=== PATIENT | male | born 1970 | race Caucasian/White ===

== ENCOUNTER 2016-11-04 13:37 | Emergency (ER) | payer OTHER, MEDICARE ==
[~2016-11-04] VITALS: Ht 185.4 cm; Wt 82.0 kg
[~2016-11-04 13:37] MED LIST: HYDR-3533 PO; TAMS0.4C67 PO; ZOFR4TAB3 SL
[2016-11-04 13:43] VITALS: BP 132/74; PULSE 90; RESP 20; TEMP 97.3; O2SAT 98
[2016-11-04] MEDS ORDERED: MORP1TAB24 PO (13:55)
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
[2016-11-04 14:05] LABS: AUTOMATED NEUTROPHIL # 5.1 TH/MM3 (1.8-7.7); BASOPHIL % 0.7 % (0.0-2.0); EOSINOPHIL # 0.1 TH/MM3 (0-0.4); EOSINOPHIL % 1.3 % (0.0-4.0); HEMATOCRIT 42.1 % (39.0-51.0); HEMO FLAGS DIFF FINAL; LYMPH % 22.8 % (9.0-44.0); LYMPHOCYTE # 1.7 TH/MM3 (1.0-4.8); MEAN CELL VOLUME 91.5 FL (80.0-100.0); MEAN CORPUSCULAR HEMOGLOBIN 31.7 PG (27.0-34.0); MEAN CORPUSCULAR HGB CONC 34.7 % (32.0-36.0); MONO % 6.4 % (0.0-8.0); NEUT % 68.8 % (16.0-70.0); PLATELET COUNT 292 TH/MM3 (150-450); RED CELL DISTRIBUTION WIDTH 13.4 % (11.6-17.2); WHITE BLOOD COUNT 7.5 TH/MM3 (4.0-11.0)
[2016-11-04 14:23] LABS: ANION GAP 9 MEQ/L (5-15); AST (GOT) 51 U/L (15-37); BICARBONATE 24.6 MEQ/L (21.0-32.0); BLOOD UREA NITROGEN 12 MG/DL (7-18); CHLORIDE 109 MEQ/L (98-107); GLOMERULAR FILTRATION RATE 106 ML/MIN (>89); POTASSIUM 3.8 MEQ/L (3.5-5.1); SODIUM (NA) 143 MEQ/L (136-145)
[2016-11-04 14:26] LABS: ALKALINE PHOSPHATASE 128 U/L (45-117); ALT (GPT) 78 U/L (12-78); TOTAL BILIRUBIN ADULT 0.3 MG/DL (0.2-1.0)
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
[2016-11-04 16:37] LABS: AMPHETAMINE, URINE NEG (NEG); BARBITURATES, URINE NEG (NEG); COCAINE, URINE NEG (NEG)
[2016-11-04 16:43] VITALS: BP 128/68; PULSE 89; RESP 18; O2SAT 99
[2016-11-04 18:00] VITALS: BP 130/78; PULSE 92; RESP 18; TEMP 98.7; O2SAT 97
[2016-11-04 22:47] VITALS: BP 178/81; PULSE 73; RESP 18; TEMP 97.6; O2SAT 96
[2016-11-04] MEDS ORDERED: diphenhydrAMINE HCL 50 MG CAP PO ONE (23:15)
[2016-11-05 02:11] VITALS: BP 143/69; PULSE 79; RESP 18; TEMP 97.4; O2SAT 98
[2016-11-05 06:36] VITALS: BP 139/79; PULSE 63; RESP 18; O2SAT 99
[2016-11-05] MEDS ORDERED: ACETAMINOPHEN 500 MG CPLT PO PRN (10:30)
[2016-11-05 10:47] VITALS: BP 136/77; PULSE 67; RESP 18; O2SAT 97
[2016-11-05 11:04] VITALS: BP 136/77; PULSE 67; RESP 18; O2SAT 97
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
== END 2016-11-05 11:42 | disposition home or self-care (01) ==
LOC: NEPE 13:37 → NEPJ 11-05 11:42
DX: Z04.1 Encounter for examination and observation following transport accident (principal); Y92.410 Unspecified street and highway as the place of occurrence of the external cause; V49.40XA Driver injured in collision with unspecified motor vehicles in traffic accident, initial encounter; F43.25 Adjustment disorder with mixed disturbance of emotions and conduct; M54.2 Cervicalgia; G89.29 Other chronic pain; F17.210 Nicotine dependence, cigarettes, uncomplicated
CPT/HCPCS: 71101; 72125; 80053; 80307; 85025; 99284; Q0163